=== PATIENT | female | born 1990 | race African-American/Black ===

== ENCOUNTER 2017-07-29 20:07 | Emergency (ER) | payer SELFPAY ==
[~2017-07-29] VITALS: Ht 167.6 cm; Wt 89.0 kg
[2017-07-29 20:08] VITALS: BP 153/100; PULSE 81; RESP 15; TEMP 98; O2SAT 99
--- NOTE | 2017-07-29 20:28 | PD ---
Physical Exam Date Seen by Provider: Jul 29, 2017 Time Seen by Provider: 20:26 Narrative 27-year-old black female presents emergent department for refill of medications. Patient is a diabetic. She is and is currently breast- feeding. She has not had her medications in approximately 3 days. Vital signs reviewed. Awaiting bed placement. Data Data Last Documented VS Vital Signs Date Time Temp Pulse Resp B/P (MAP) Pulse Ox O2 Delivery O2 Flow Rate FiO2 07/29/17 20:08 98.0 81 15 153/100 (117) 99 Room Air [facility] Medical Record Reviewed: No Supervised Visit with MADDI: Jose Diana Jul 29, 2017 20:28
[2017-07-29] MEDS ORDERED: NOVORP2 SQ (20:50)
--- NOTE | 2017-07-29 20:50 | PD ---
HPI Chief Complaint: Medication Refill Request Time Seen by Provider: 20:48 Travel History International Travel<30 days: No Contact w/Intl Traveler<30days: No Traveled to known affect area: No History of Present Illness HPI 27-year-old female with history of diabetes presents to emergency department requesting a refill of her insulin. Patient states that she has been out for about 3 days. She is from [place] and recently moved here. Reports she does not have insurance and it is $238 so she has not filled it. Denies any chest pain or tightness. Denies any nausea or vomiting. No recent illnesses, fever, or chills. Blood glucose is 140 here today. PFSH Past Medical History Diabetes: Yes Social History Alcohol Use: No Tobacco Use: No Substance Use: No Allergies-Medications (Allergen,Severity, Reaction): Coded Allergies: sulfamethoxazole (Verified Allergy, Severe, 07/29/17) trimethoprim (Verified Allergy, Severe, 07/29/17) amoxicillin (Verified Allergy, Unknown, 07/29/17) Reported Meds & Prescriptions Reported Meds & Active Scripts Active Novolin R Inj (Insulin Human Regular) 1,000 Unit/10 Ml Vial 0 SQ DIRECTED Sliding Scale As Directed. Review of Systems Except as stated in HPI: all other systems reviewed are Neg Physical Exam Narrative GENERAL: Well-nourished, well-developed female patient in no acute distress SKIN: Focused skin assessment warm/dry. HEAD: Normocephalic. EYES: No scleral icterus. No injection or drainage. NECK: Supple, trachea midline. No JVD or lymphadenopathy. CARDIOVASCULAR: Regular rate and rhythm without murmurs, gallops, or rubs. RESPIRATORY: Breath sounds equal bilaterally. No accessory muscle use. GASTROINTESTINAL: Abdomen soft, non-tender, nondistended. MUSCULOSKELETAL: No cyanosis, or edema. BACK: Nontender without obvious deformity. No CVA tenderness. Data Data Last Documented VS Vital Signs Date Time Temp Pulse Resp B/P (MAP) Pulse Ox O2 Delivery O2 Flow Rate FiO2 07/29/17 20:08 98.0 81 15 153/100 (117) 99 Room Air MDM Medical Decision Making Medical Screen Exam Complete: Yes Emergency Medical Condition: Yes Medical Record Reviewed: Yes Differential Diagnosis Medication noncompliance versus medication refill versus diabetes versus hyperglycemia Narrative Course 27-year-old female presents to the emergency department requesting a refill of her insulin. She is not acutely ill. She appears well. Patient is provided a prescription for this. She is given a good Rx prescription card so the prescription is $24 at [facility]. She is strongly encouraged to establish care with a primary care provider down here. She agrees to return immediately with any acute worsening symptoms. Diagnosis Primary Impression: Medication refill Additional Impression: Diabetes Qualified Codes: E11.8 - Type 2 diabetes mellitus with unspecified complications Referrals: [facility] Primary Care Physician Patient Instructions: General Instructions, Medication Refill, ED Additional Instructions: It is important that you establish care with a primary care provider Your prescription discount is for [facility] and should cost $24 Return immediately with any acute worsening of symptoms Med/Other Pt SpecificInfo: Prescription(s) given Scripts Insulin Human Regular Inj (Novolin R Inj) 1,000 Unit/10 Ml Vial 0 SQ DIRECTED for Blood Sugar Management, #10 ML 0 Refills Sliding Scale As Directed. Prov: Kirti Elaine 07/29/17 Disposition: 01 DISCHARGE HOME Condition: Stable Kirti Elaine Jul 29, 2017 20:50
== END 2017-07-29 21:12 | disposition home or self-care (01) ==
LOC: NEPK 20:07
DX: E11.9 Type 2 diabetes mellitus without complications (principal); Z76.0 Encounter for issue of repeat prescription
CPT/HCPCS: 99281

== ENCOUNTER 2017-09-12 21:45 | Emergency (ER) | payer SELFPAY ==
[~2017-09-12 21:45] MED LIST: NOVORP2 SQ
[2017-09-12 21:49] VITALS: BP 182/88; PULSE 97; RESP 18; TEMP 98.9; O2SAT 100
[2017-09-12] MEDS ORDERED: CYCLOBENZAPRINE HCL 10 MG TAB PO ONE (23:30)
[2017-09-12] MEDS ORDERED: KETOROLAC TROMETHAMINE 60 MG/2 ML (IM) VIAL IM ONE (23:30)
[2017-09-12 23:54] LABS: BLOOD, URINE NEG (NEG); COMMENT (UR) CULT NOT INDICATED; CULTURE IF INDICATED CULT NOT INDICATED; GLUCOSE,URINE 1000 mg/dL (NEG); KETONE, URINE NEG (NEG); MUCUS URINE FEW /lpf (OCC); NITRITE,URINE NEG (NEG); PH, URINE 6.5 (5.0-8.5); SQUAMOUS EPITHELIAL CELL URINE 3 /hpf (0-5); URINE COLOR YELLOW (YELLW/STRAW)
--- NOTE | 2017-09-13 00:08 | PD ---
HPI Chief Complaint: Back/ Neck Pain or Injury Time Seen by Provider: 22:57 Travel History International Travel<30 days: No Contact w/Intl Traveler<30days: No Traveled to known affect area: No History of Present Illness HPI 27-year-old female here for evaluation of mid back pain for the last week. The patient has a 6-month-old child at home and she is breast-feeding. She states that she has had continuous pain for last week which is worse with leaning forward and breast-feeding. 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 She denies any specific trauma. No paresthesias or motor deficits. Pain is moderate, dull, worse with movements, constant. No fevers or chills. No history of IVDU. No urinary symptoms. No urinary or bowel incontinence or retention. PFSH Past Medical History Diabetes: Yes Patient Takes Glucophage: No Diminished Hearing: No ?: Unknown LMP: 08/31/17 Social History Alcohol Use: No Tobacco Use: No Substance Use: No Allergies-Medications (Allergen,Severity, Reaction): Coded Allergies: sulfamethoxazole (Verified Allergy, Severe, 09/12/17) trimethoprim (Verified Allergy, Severe, 09/12/17) amoxicillin (Verified Allergy, Unknown, 09/12/17) Reported Meds & Prescriptions Reported Meds & Active Scripts Active Novolin R Inj (Insulin Human Regular) 1,000 Unit/10 Ml Vial 0 SQ DIRECTED Sliding Scale As Directed. Review of Systems Except as stated in HPI: all other systems reviewed are Neg Physical Exam Narrative GENERAL: Well-developed, well-nourished, comfortable, no acute distress. Ambulated to the restroom without difficulty and without assistance with a normal gait and normal posture. SKIN: Focused skin assessment warm/dry. No rash. HEAD: Atraumatic. Normocephalic. EYES: Pupils equal and round. No scleral icterus. No injection or drainage. ENT: Mucous membranes pink and moist. NECK: Trachea midline. No JVD. No midline cervical spine step-off or tenderness. CARDIOVASCULAR: Regular rate and rhythm. RESPIRATORY: No accessory muscle use. Clear to auscultation. Breath sounds equal bilaterally. GASTROINTESTINAL: Abdomen soft, non-tender, nondistended. MUSCULOSKELETAL: No obvious deformities. No clubbing. No cyanosis. No edema. Moderate midline/mid thoracic spine tenderness as well as paraspinal tenderness in this region left greater than right. There is mild midline lumbar spine tenderness without step-off. Mild left CVA tenderness when compared to the right. Normal range of motion in all joints and extremities. NEUROLOGICAL: Awake and alert. No obvious cranial nerve deficits. Motor grossly within normal limits. Normal speech. PSYCHIATRIC: Appropriate mood and affect; insight and judgment normal. Data Data Last Documented VS Vital Signs Date Time Temp Pulse Resp B/P (MAP) Pulse Ox O2 Delivery O2 Flow Rate FiO2 09/12/17 21:49 98.9 97 18 182/88 (119) 100 Room Air Orders Orders Spine, Thoracic-Ap/Lat/Sw(3vw) (09/12/17 ) Spine, Lumbar Comp W/Obliq (09/12/17 ) Urinalysis - C+S If Indicated (09/12/17 23:20) Ketorolac Inj (Toradol Inj) (09/12/17 23:30) Cyclobenzaprine (Flexeril) (09/12/17 23:30) Labs Laboratory Tests Test 09/12/17 23:27 Urine Color YELLOW Urine Turbidity CLEAR Urine pH 6.5 Urine Specific [place] 1.029 Urine Protein 30 mg/dL Urine Glucose (UA) 1000 mg/dL Urine Ketones NEG mg/dL Urine Occult Blood NEG Urine Nitrite NEG Urine Bilirubin NEG Urine Urobilinogen 2.0 MG/DL Urine Leukocyte Esterase TRACE Urine RBC LESS THAN 1 /hpf Urine WBC 1 /hpf Urine Squamous Epithelial Cells 3 /hpf Urine Mucus FEW /lpf Microscopic Urinalysis Comment CULT NOT INDICATED MDM Medical Decision Making Medical Screen Exam Complete: Yes Emergency Medical Condition: Yes Differential Diagnosis Vertebral fracture/compression fracture, back pain, muscle spasm, ureterolithiasis, pyelonephritis Narrative Course Vital signs reviewed. Blood pressure is elevated at 182/88. She is not displaying any signs or symptoms of hypertensive crisis. UA: 30 protein, 1000 glucose, trace leukocyte esterase, few mucus, not suggestive of UTI. X-ray T-spine: CONCLUSION: Mild left convex lower thoracic scoliosis and mild bony degenerative findings of the thoracic spine. X-ray L-spine: CONCLUSION: Minimal retrolisthesis L5 on S1 with possible facet arthrosis L5 -S1. Patient was given a dose of IM Toradol and oral Flexeril, and on reassessment she is sleeping comfortably. She states her pain is significantly improved. Patient's symptoms are likely from musculoskeletal spasm in her back secondary to lifting her children. She does not have any red flags for back pain. No history of IVDU. She is stable for discharge home with further workup as an outpatient. She will be discharged home with a prescription for Naprosyn. She was informed on when to return to the emergency department. She verbalizes understanding and agreement with plan. Diagnosis Primary Impression: Back pain Qualified Codes: M54.6 - Pain in thoracic spine Referrals: [facility] 3 days Primary Care Physician 3 days Additional Instructions: Follow-up with a primary care physician this week. Return to the emergency department for worsening symptoms or any other concerns. Scripts Naproxen (Naprosyn) 500 Mg Tab 500 MG PO BID for 5 Days, #10 TAB 0 Refills Prov: Juan Beard MD 09/13/17 Disposition: 01 DISCHARGE HOME Condition: Stable Juan Beard MD Sep 13, 2017 00:08
--- NOTE | 2017-09-13 00:31 | RADRPT ---
EXAM DATE/TIME: 09/12/2017 23:46 [facility] COMPARISON: No previous studies available for comparison. INDICATIONS : Nontraumatic general back and left flank pain for one month. MEDICAL HISTORY : Diabetes mellitus type II. SURGICAL HISTORY : None. ENCOUNTER: Initial ACUITY: 1 month PAIN SCORE: 8/10 LOCATION: Left middle back FINDINGS: 3 views thoracic spine. Mild left convex scoliosis of the lower thoracic spine. Small endplate osteop hytes at multiple levels of the mid to lower thoracic spine. Bone alignment within normal limits. No evidence of fracture. CONCLUSION: Mild left convex lower thoracic scoliosis and mild bony degenerative findings of the thoracic spine. Radames Olivas MD on September 13, 2017 at 0:28 Board Certified Radiologist. This report was verified electronically.
--- NOTE | 2017-09-13 00:33 | RADRPT ---
EXAM DATE/TIME: 09/12/2017 23:47 [facility] COMPARISON: SPINE THORACIC AP/LAT/SW (3VW), September 12, 2017, 23:46. INDICATIONS : Nontraumatic general back and left flank pain for one month. MEDICAL HISTORY : Diabetes mellitus type II. SURGICAL HISTORY : None. ENCOUNTER: Initial ACUITY: 1 month PAIN SCORE: 8/10 LOCATION: Left middle back FINDINGS: 5 views lumbar spine. Minimal retrolisthesis L5 on S1. Possible facet arthrosis at L5-S1. No evidence of fracture. Vertebral body height and shape within normal limits. CONCLUSION: Minimal retrolisthesis L5 on S1 with possible facet arthrosis L5-S1. Radames Olivas MD on September 13, 2017 at 0:30 Board Certified Radiologist. This report was verified electronically.
[2017-09-13] MEDS ORDERED: NAPR500 PO (00:55)
== END 2017-09-13 01:18 | disposition home or self-care (01) ==
LOC: NEPD 21:45
DX: M54.6 Pain in thoracic spine (principal); E11.9 Type 2 diabetes mellitus without complications
CPT/HCPCS: 72072; 72110; 81001; 96372; 99284; J1885

== ENCOUNTER 2017-12-23 23:39 | Emergency (ER) | payer BC ==
[~2017-12-23] VITALS: Ht 167.6 cm; Wt 92.0 kg
[~2017-12-23 23:39] MED LIST changes: +NAPR500 PO
[2017-12-23 23:40] VITALS: BP 150/94; PULSE 96; RESP 16; TEMP 98.5; O2SAT 99
[2017-12-24] MEDS ORDERED: MORPHINE SULFATE 2 MG/ML INJ IV PUSH ONE (00:15)
[2017-12-24] MEDS ORDERED: KETOROLAC TROMETHAMINE 30 MG/ML (IVP) VIAL IV PUSH ONE (00:15)
[2017-12-24] MEDS ORDERED: CLINDAMYCIN 600 MG/NS PREMIX 50 ML IV ONE (00:15)
--- NOTE | 2017-12-24 00:15 | PD ---
HPI Chief Complaint: Injury Time Seen by Provider: 23:57 Travel History International Travel<30 days: No Contact w/Intl Traveler<30days: No Traveled to known affect area: No History of Present Illness HPI Patient is a 27-year-old female coming in with a abscess tenderness swelling indurated area on her left inguinal fold is been getting steadily worse. She has not taken any antibiotics for this infection. She had a child 9 months ago otherwise she's had no reason for the infection. she's never had this infection like this before. she has not seen another doctor. Patient is diabetic insulin-dependent Pain severe in the inguinal area . getting worse over the last few days , localized pressurelike severe pain PFSH Past Medical History Diabetes: Yes Patient Takes Glucophage: No Diminished Hearing: No Tetanus Vaccination: Unknown Influenza Vaccination: No ?: Unknown LMP: 12/02/2017 Past Surgical History Surgical History: No Previous Surgery Social History Alcohol Use: No Tobacco Use: No Substance Use: No Allergies-Medications (Allergen,Severity, Reaction): Coded Allergies: sulfamethoxazole (Verified Allergy, Severe, 12/23/17) trimethoprim (Verified Allergy, Severe, 12/23/17) amoxicillin (Verified Allergy, Unknown, 12/23/17) Reported Meds & Prescriptions Reported Meds & Active Scripts Active Ibuprofen 600 Mg Tab 600 Mg PO Q6H PRN [place] (Hydrocodone-Acetaminophen) 5 Mg-325 Mg Tab 1 Tab PO Q6H PRN Clindamycin (Clindamycin HCl) 300 Mg Cap 300 Mg PO TID Naprosyn (Naproxen) 500 Mg Tab 500 Mg PO BID 5 Days Novolin R Inj (Insulin Human Regular) 1,000 Unit/10 Ml Vial 0 SQ DIRECTED Sliding Scale As Directed. Review of Systems Except as stated in HPI: all other systems reviewed are Neg (Skin infection left inguinal fold to the leg) Physical Exam Narrative GENERAL: Patient appears to be in moderate distress when I enter the room she is holding her left inguinal area tearful in pain SKIN: Warm and dry. She has a 4 cm area indurated tender and warm at the inguinal fold of her leg to her inguinal area on the left HEAD: Atraumatic. Normocephalic. EYES: Pupils equal and round. No scleral icterus. No injection or drainage. ENT: No nasal bleeding or discharge. Mucous membranes pink and moist. NECK: Trachea midline. No JVD. CARDIOVASCULAR: Regular rate and rhythm. RESPIRATORY: No accessory muscle use. Clear to auscultation. Breath sounds equal bilaterally. GASTROINTESTINAL: Abdomen soft, non-tender, nondistended. Hepatic and splenic margins not palpable. MUSCULOSKELETAL: Extremities without clubbing, cyanosis, or edema. No obvious deformities. NEUROLOGICAL: Awake and alert. No obvious cranial nerve deficits. Motor grossly within normal limits. Five out of 5 muscle strength in the arms and legs. Normal speech. PSYCHIATRIC: Appropriate mood and affect; insight and judgment normal. Data Data Last Documented VS Vital Signs Date Time Temp Pulse Resp B/P (MAP) Pulse Ox O2 Delivery O2 Flow Rate FiO2 12/24/17 03:02 12/24/17 01:43 93 18 97 Room Air 12/23/17 23:40 98.5 Orders Orders Clindamycin 600 Mg/Ns Premix (Cleocin 60 (12/24/17 00:15) Ketorolac Inj (Toradol Inj) (12/24/17 00:15) Morphine Inj (Morphine Inj) (12/24/17 00:15) Lidocai-Epi 2%-1:100,000 Inj (Xylocaine- (12/24/17 00:45) Lorazepam Inj (Ativan Inj) (12/24/17 00:44) Lorazepam Inj (Ativan Inj) (12/24/17 01:00) Ed Discharge Order (12/24/17 02:44) [facility] Medical Decision Making Medical Screen Exam Complete: Yes Emergency Medical Condition: Yes Differential Diagnosis Differential diagnosis includes folliculitis versus ingrown hair versus carbuncle versus abscess versus lipoma Narrative Course Patient is given IV clindamycin and then incision and drainage follow-up as outpatient 2 days return p.o. clindamycin 3 times daily for the next 10 days successful I&D with much pus expressed patient's pain is relieved significantly by the decreased pulse and pressure in the wound Procedures Procedure Narrative Procedural note for an I&D of a Betadine preparation the area injected with 2% lidocaine with epi and then using 11 blade to make an incision 1 mm incision with much pus expressed culture sent with packed successful I&D patient tolerated procedure well covered gauze told to follow-up in 2 days return for wound check clindamycin given p.o. for Diagnosis Primary Impression: Abscess Patient Instructions: Abscess (ED), General Instructions Additional Instructions: Keep bandage on for 2 days return to the ER for follow-up or follow-up with your doctor on Thursday morning appointment. Take the clindamycin antibiotic for 3 times a day for 10 days to clear up the rest of the infection Scripts Ibuprofen (Ibuprofen) 600 Mg Tab 600 MG PO Q6H Y for Pain/Inflammation, #30 TAB 0 Refills Prov: Jose Cruz Iyer MD 12/24/17 Hydrocodone-Acetaminophen ([place]) 5 Mg-325 Mg Tab 1 TAB PO Q6H Y for PAIN, #10 TAB 0 Refills Prov: Jose Cruz Iyer MD 12/24/17 Clindamycin (Clindamycin) 300 Mg Cap 300 MG PO TID for Infection, #30 CAP 0 Refills Prov: Jose Cruz Iyer MD 12/24/17 Disposition: 01 DISCHARGE HOME Condition: Good Jose Cruz Iyer MD Dec 24, 2017 00:15
[2017-12-24] MEDS ORDERED: LORazepam 2 MG/ML VIAL ONE (00:44)
[2017-12-24] MEDS ORDERED: LIDOCAINE 2%/EPINEPHrine 1:100,000 20ML MDV NERV BLOCK ONE (00:45)
[2017-12-24] MEDS ORDERED: LORazepam 2 MG/ML VIAL IV PUSH ONE (01:00)
[2017-12-24 01:43] VITALS: BP 134/95; PULSE 93; RESP 18; O2SAT 97
[2017-12-24] MEDS ORDERED: NORC5TAB PO (02:22)
[2017-12-24] MEDS ORDERED: CLIN300C5 PO (02:22)
[2017-12-24] MEDS ORDERED: IBUP-232 PO (02:23)
== END 2017-12-24 03:12 | disposition home or self-care (01) ==
LOC: NEPE 23:39
DX: L02.214 Cutaneous abscess of groin (principal); E11.9 Type 2 diabetes mellitus without complications
CPT/HCPCS: 10060; 96374; 96375; 99284; J1885; J2060; J2270

== ENCOUNTER 2018-03-09 01:38 | Emergency (ER) | payer BC ==
[~2018-03-09] VITALS: Ht 167.6 cm; Wt 91.0 kg
[~2018-03-09 01:38] MED LIST changes: +CLIN300C5 PO; +IBUP-232 PO; +NORC5TAB PO
[2018-03-09 01:42] VITALS: BP 156/98; PULSE 77; RESP 20; TEMP 98.2; O2SAT 99
--- NOTE | 2018-03-09 02:14 | PD ---
HPI Chief Complaint: Assistant Vice President Problem/Complaint Time Seen by Provider: 02:02 Travel History International Travel<30 days: No Contact w/Intl Traveler<30days: No Traveled to known affect area: No History of Present Illness HPI The patient is a 27 year old female who presents to the [facility] emergency department with a history of reported vaginal pain that began after having sex 3 days ago. She reports that she was extremely dry and her examined her later when she developed pain and she seems to have developed tears in the skin. She reports that this was vaginal intercourse. The patient reports that she has had a white vaginal discharge associated with this. She reports that she was concerned that she may have a yeast infection. She has been using topical Neosporin and coconut oil without improvement. The patient has a known history of diabetes. She has been out of her Bydureon for 2 weeks and just restarted this on Thursday. The patient reports that she has not recently checked her blood sugar as she is waiting for a new Accu-Chek monitor. The patient is tearful on examination reporting a burning sensation to the vaginal area. On review of systems otherwise, the patient denies having any known recent fevers, cough or congestion, neck pain, chest pain, shortness of breath, abdominal pain, vomiting, diarrhea, or neurologic symptoms. She reports that it gregory in the vaginal area when she urinates. She denies having any urinary frequency or urgency. LMP: February 23, 2018 [facility] Past Medical History Narrative Medical The patient's past medical history is significant for diabetes mellitus. Diabetes: Yes Patient Takes Glucophage: No Diminished Hearing: No Tetanus Vaccination: Unknown Influenza Vaccination: No ?: Unknown LMP: 02/23/2018 Past Surgical History Narrative Surgical The patient's past surgical history is reportedly none. Surgical History: No Previous Surgery Social History Alcohol Use: No Tobacco Use: No Substance Use: No Allergies-Medications (Allergen,Severity, Reaction): Coded Allergies: sulfamethoxazole (Verified Allergy, Severe, 03/09/18) trimethoprim (Verified Allergy, Severe, 03/09/18) amoxicillin (Verified Allergy, Unknown, 03/09/18) Reported Meds & Prescriptions Reported Meds & Active Scripts Active Flagyl (Metronidazole) 500 Mg Tab 500 Mg PO BID Ibuprofen 600 Mg Tab 600 Mg PO Q6H PRN Isabella (Hydrocodone-Acetaminophen) 5 Mg-325 Mg Tab 1 Tab PO Q6H PRN Clindamycin (Clindamycin HCl) 300 Mg Cap 300 Mg PO TID Naprosyn (Naproxen) 500 Mg Tab 500 Mg PO BID 5 Days Novolin R Inj (Insulin Human Regular) 1,000 Unit/10 Ml Vial 0 SQ DIRECTED Sliding Scale As Directed. Review of Systems Except as stated in HPI: all other systems reviewed are Neg General / Constitutional: No: Fever Eyes: No: Visual changes HENT: No: Headaches Cardiovascular: No: Chest Pain or Discomfort Respiratory: No: Shortness of Breath Gastrointestinal: No: Nausea, Vomiting, Diarrhea, Abdominal Pain Genitourinary: Positive: Dysuria, Discharge, Other (Vaginal pain), No: Urgency , Frequency, Pelvic Pain Musculoskeletal: No: Pain Skin: No Rash Neurologic: No: Weakness Psychiatric: No: Depression Endocrine: No: Polydipsia Hematologic/Lymphatic: No: Easy Bruising Physical Exam Narrative General: The patient is a well-developed well-nourished female, uncomfortable appearing on arrival, tearful. Head and Neck exam: Head is normocephalic atraumatic. Eyes: EOMI, pupils are equal round and reactive to light. Nose: Midline septum with pink mucous membranes Mouth: Dentition unremarkable. Moist mucus membranes. Posterior oropharynx is not erythematous. No tonsillar hypertrophy. Uvula midline. Airway patent. Neck: No palpable lymphadenopathy. No nuchal rigidity. No thyromegaly. Cardiovascular: Regular rate and rhythm without murmurs, gallops, or rubs. Lungs: Clear to auscultation bilaterally. No wheezes, rhonchi, or rales. Abdomen: Soft, without tenderness to palpation in all 4 quadrants of the abdomen. No guarding, rebound, or rigidity. Normal bowel sounds are audible. No tenderness on palpation of McBurney's point. Extremities: No clubbing, cyanosis, or edema. 2+ pulses in all 4 extremities. Back: No costovertebral angle tenderness to palpation. Neurologic Exam: Grossly nonfocal. Skin Exam: No rash noted. Intact skin that is warm and dry. Gynecologic exam: The patient was placed in the dorsal lithotomy position. Her external genitalia were examined. She has erythema, mild edema noted of the labia minora and majora. There is no focal area of fluctuance. There is no pointing. There is no vesicle formation or ulceration. The speculum was placed into her vagina and the cervix was identified. She had a thick clumpy, white discharge noted. No cervical friability. On Bimanual exam: she has no cervical motion tenderness. No adnexal tenderness or prominence noted on palpation. No uterine tenderness or enlargement noted on palpation. Data Data Last Documented VS Vital Signs Date Time Temp Pulse Resp B/P (MAP) Pulse Ox O2 Delivery O2 Flow Rate FiO2 03/09/18 01:42 98.2 77 20 156/98 (117) 99 Orders Orders Gc And Chlamydia Pcr (03/09/18 02:04) Wet Prep Profile (03/09/18 02:04) Urinalysis - C+S If Indicated (03/09/18 02:04) Ed Urine Pregnancytest Poc (03/09/18 02:04) Blood Glucose (03/09/18 02:38) Insulin Human Regular Inj (Novolin R Inj (03/09/18 03:15) Fluconazole (Diflucan) (03/09/18 03:15) Lidocaine 2% Jelly (Xylocaine 2% Jelly) (03/09/18 03:15) Labs Laboratory Tests Test 03/09/18 02:50 03/09/18 03:39 Clue Cells (Wet Prep) PRESENT Vaginal Trichomonas (Wet Prep) NONE SEEN Vaginal Yeast (Wet Prep) NONE SEEN Chlamydia trachomatis DNA (PCR) NOT DETECTED Neisseria gonorrhoeae DNA (PCR) NOT DETECTED Urine Color LIGHT-YELLOW Urine Turbidity CLEAR Urine pH 7.0 Urine Specific [place] 1.026 Urine Protein NEG mg/dL Urine Glucose (UA) 1000 mg/dL Urine Ketones 10 mg/dL Urine Occult Blood NEG Urine Nitrite NEG Urine Bilirubin NEG Urine Urobilinogen LESS THAN 2.0 MG/DL Urine Leukocyte Esterase NEG Urine RBC 1 /hpf Urine WBC 1 /hpf Urine Squamous Epithelial Cells 1 /hpf Microscopic Urinalysis Comment CULT NOT INDICATED MDM Medical Decision Making Medical Screen Exam Complete: Yes Emergency Medical Condition: Yes Medical Record Reviewed: Yes Differential Diagnosis Yeast vaginitis, versus bacterial vaginosis, versus trichomoniasis, versus gonorrhea, versus chlamydia, versus genital herpes Narrative Course During the course of the patient's emergency department visit, the patient's history, examination, and differential diagnosis were reviewed with the patient. The patient was placed on a compliance monitor with oximetry and frequent blood pressure monitoring. The patient had GC and chlamydia sent for analysis. The patient had a wet prep done. The patient was initially provided topical lidocaine for the area. The patient was given Diflucan 150 mg p.o. 1. The patient's laboratory studies were reviewed and remarkable for a urinalysis that shows glucose of thousand, ketones 10, wet prep is positive for clue cells. GC and Chlamydia are negative. The patient will be discharged home with a prescription for Terazol cream, Flagyl. The patient is resting comfortably and feels better, is alert and in no distress. The patient's results and examination findings were discussed with the patient. The repeat examination is unremarkable and benign. The history, exam, diagnostic testing, and current condition do not suggest any significant pathology to warrant further testing, continued ED treatment, admission, or surgical evaluation at this point. The vital signs have been stable. The patient does not have uncontrollable pain, intractable vomiting, or other significant symptoms. The patient's condition is stable and appropriate for discharge. The patient will pursue further outpatient evaluation with a primary care physician or other designated or consulting physician as indicated in the discharge instructions. The patient expressed understanding and was agreeable with this plan. Diagnosis Primary Impression: Hyperglycemia due to type 2 diabetes mellitus Qualified Codes: E11.65 - Type 2 diabetes mellitus with hyperglycemia; Z79.4 - termite control technician (current) use of insulin Additional Impressions: Bacterial vaginosis Vaginitis Qualified Codes: N76.0 - Acute vaginitis Referrals: Collaborative Physician 1 week Primary Care Physician 1 week Patient Instructions: Bacterial Vaginosis (ED), Diabetic Hyperglycemia (ED), General Instructions, Vaginitis (ED) Additional Instructions: The patient is instructed regarding the importance of regularly checking her blood sugar and treating with her sliding scale insulin as previously recommended by her primary care physician as poorly controlled blood sugar could be contributing to the symptoms that she is experiencing. Scripts Terconazole Vaginal Cream (Terazol 7 Vaginal Cream) 0.4 % Cream 1 APPL VAGINAL HS for Fungal Infection, #45 GM 0 Refills 1 applicatorful intravaginally x 7 nights Prov: Sara Alonso MD 03/09/18 Metronidazole (Flagyl) 500 Mg Tab 500 MG PO BID for Infection, #14 TAB 0 Refills Prov: Sara Alonso MD 03/09/18 Disposition: 01 DISCHARGE HOME Condition: Stable Sara Alonso MD March 09, 2018 02:14
[2018-03-09] MEDS ORDERED: INSULIN HUMAN REGULAR 1,000 UNITS/10 ML VIAL SQ ONE (03:15)
[2018-03-09] MEDS ORDERED: FLUCONAZOLE 100 MG TAB PO ONE (03:15)
[2018-03-09] MEDS ORDERED: LIDOCAINE 2% JELLY 30 ML TUBE TOPICAL ONE (03:15)
[2018-03-09 04:12] LABS: BILIRUBIN, URINE NEG (NEG); BLOOD, URINE NEG (NEG); GLUCOSE,URINE 1000 mg/dL (NEG); KETONE, URINE 10 mg/dL (NEG); NITRITE,URINE NEG (NEG); SQUAMOUS EPITHELIAL CELL URINE 1 /hpf (0-5); URINE COLOR LIGHT-YELLOW (YELLW/STRAW); URINE LEUKOCYTE ESTERASE NEG (NEG)
[2018-03-09] MEDS ORDERED: METR-1 PO (04:47)
[2018-03-09] MEDS ORDERED: TERC.4%V VAGINAL (04:47)
== END 2018-03-09 05:35 | disposition home or self-care (01) ==
LOC: NEPE 01:38
DX: E11.65 Type 2 diabetes mellitus with hyperglycemia (principal); N76.0 Acute vaginitis; B96.89 Other specified bacterial agents as the cause of diseases classified elsewhere; Z79.4 Long term (current) use of insulin
CPT/HCPCS: 81001; 84703; 87210; 87491; 87591; 96372; 99283; J1815